=== PATIENT | female | born 1950 | race Caucasian/White ===

== ENCOUNTER 2022-04-22 12:11 | Emergency (ER) | payer MEDICARE ==
[~2022-04-22 12:11] MED LIST: ASCO500T10 PO; BALS60OI TP; CHOL-34 PO; DIPH25TA22 PO; DRON10CA5 PO; ENOX40DI9 SQ; FLUC100T12 PO; FURO10VI4 IV; HYDR0.5S2 IVP; HYDR1AMP2 IVP; INSLAN SQ; INSU100V3 SQ; LACT10SO9 PO; METO5VIA33 IV; MIDO10TA PO; NYSTPW TP; ONDA22I IM; PANT40TA54 PO; PIPE4.5F2 IV; QUET25TA PO; RIFA550T PO; SANTO TP; SERT50TA PO; TRAM50TA4 PO; ZINC220C6 PO; [UNRECOGNIZED DRUG - CODE] IV; [UNRECOGNIZED DRUG - CODE] IV
[2022-04-22 13:01] LABS: BASOPHILS % (AUTO) 0.3 % (0.0-5.0); EOSINOPHILS % (AUTO) 1.3 % (0.0-8.0); HEMATOCRIT 30.2 % (36-48); MEAN CORPUSCULAR HEMOGLOBIN 30.4 pg (27.0-33.0); MEAN CORPUSCULAR HGB CONC 32.8 g/dL (32.0-36.0); MEAN CORPUSCULAR VOLUME 92.6 fL (79-99); MONOCYTES % (AUTO) 7.8 % (3.0-13.0); PLATELET COUNT (AUTO) 453 K/uL (130-400); RED BLOOD CELL COUNT(AUTO) 3.26 MIL/uL (4.00-5.50); RED CELL DISTRIBUTION WIDTH 14.1 % (11.0-15.5); WHITE BLOOD COUNT (AUTO) 14.8 K/uL (4.8-10.8)
[2022-04-22 13:28] LABS: ALBUMIN 1.9 g/dL (3.5-5.0); CREATININE 0.9 mg/dL (0.5-1.5); POTASSIUM 3.9 mmol/L (3.5-5.1); TOTAL PROTEIN, SERUM 6.2 g/dL (6.0-8.3)
[2022-04-22 13:30] LABS: INR 1.03 (0.85-1.15); PROTHROMBIN TIME 11.2 SEC (9.6-11.6)
[2022-04-22] MEDS ORDERED: TRAMADOL HCL 50 MG TABLET PO ONE (13:30)
[2022-04-22] MEDS ORDERED: ACETAMINOPHEN 500 MG TABLET PO ONE (13:30)
[2022-04-22 13:31] LABS: PARTIAL THROMBOPLASTIN TIME 29.9 SEC (26.3-35.5)
[2022-04-22 13:48] LABS: BILIRUBIN,URINE NEGATIVE (NEGATIVE); COLOR,URINE YELLOW (YELLOW); GLUCOSE, URINE (UA) NEGATIVE (NEGATIVE); KETONES,URINE NEGATIVE (NEGATIVE); LEUKOCYTE ESTERASE ,URINE MODERATE Leu/uL (NEGATIVE); NITRATE,URINE NEGATIVE (NEGATIVE); OCCULT BLOOD,URINE TRACE-INTACT (NEGATIVE); PROTEIN,URINE 30 mg/dL (NEGATIVE); UROBILINOGEN,URINE 0.2 mg/dL (0.2-1.0)
[2022-04-22 13:59] LABS: APPEARANCE,URINE CLOUDY (CLEAR)
[2022-04-22] MEDS ORDERED: ZOSYN 3.375GM +NS 50ML IV STA (14:09)
[2022-04-22 14:19] VITALS: BP 123/68
[2022-04-22 14:22] LABS: BACTERIA,URINE Few /HPF (None Seen); YEAST,URINE BUDDING Many /HPF (None Seen)
[2022-04-22] MEDS ORDERED: CEPH500B PO (14:23)
== END 2022-04-22 16:56 | disposition short-term general hospital (02) ==
LOC: EDH 12:11
DX: N39.0 Urinary tract infection, site not specified (principal); E66.01 Morbid (severe) obesity due to excess calories; Z68.43 Body mass index [BMI] 50.0-59.9, adult; E11.9 Type 2 diabetes mellitus without complications; E78.00 Pure hypercholesterolemia, unspecified; F32.A Depression, unspecified; I11.0 Hypertensive heart disease with heart failure; I50.9 Heart failure, unspecified; Z88.8 Allergy status to other drugs, medicaments and biological substances; Z88.2 Allergy status to sulfonamides; Z88.6 Allergy status to analgesic agent; Z88.5 Allergy status to narcotic agent; Z79.899 Other long term (current) drug therapy; Z79.4 Long term (current) use of insulin
CPT/HCPCS: 99285; 96365; 71045; 82550; 84484; 80053; 85025; 85610; 85730; 87040 ×2; 87077; 87088; 87186; 83605; 81001; 36415; 51702; 93005; J2543

== ENCOUNTER 2022-06-01 10:29 | Emergency (ER) | payer MEDICARE ==
[~2022-06-01 10:29] MED LIST changes: +ACET325T51 PEG; -ASCO500T10 PO; +AUD IH; -BALS60OI TP; -CHOL-34 PO; -DIPH25TA22 PO; -DRON10CA5 PO; -ENOX40DI9 SQ; -FLUC100T12 PO; -FURO10VI4 IV; +HONE15GE TP; -HYDR0.5S2 IVP; -HYDR1AMP2 IVP; -INSU100V3 SQ; -LACT10SO9 PO; +MAGN400T56 PEG; -METO5VIA33 IV; -MIDO10TA PO; +MULT-1203 PEG; -NYSTPW TP; -ONDA22I IM; -PANT40TA54 PO; -PIPE4.5F2 IV; +PREG25CA18 PO; +PROM25TA7 PO; +PROT946L PEG; -QUET25TA PO; -RIFA550T PO; +RIVA10TA PEG; -SANTO TP; -SERT50TA PO; +TRAM100T40 PO; -TRAM50TA4 PO; +VIT C; +VIT500LI PEG; -ZINC220C6 PO; +ZINC220T4 PEG; -[UNRECOGNIZED DRUG - CODE] IV; -[UNRECOGNIZED DRUG - CODE] IV; +[UNRECOGNIZED DRUG - OTHER] MISC
[2022-06-01 10:36] VITALS: BP 140/87
== END 2022-06-01 15:56 ==
LOC: EDH 10:29
DX: T85.518A Breakdown (mechanical) of other gastrointestinal prosthetic devices, implants and grafts, initial encounter (principal); E11.9 Type 2 diabetes mellitus without complications; I11.0 Hypertensive heart disease with heart failure; I50.9 Heart failure, unspecified; E66.01 Morbid (severe) obesity due to excess calories; Z68.43 Body mass index [BMI] 50.0-59.9, adult; Z79.4 Long term (current) use of insulin; Z87.440 Personal history of urinary (tract) infections; Z88.2 Allergy status to sulfonamides; Z88.5 Allergy status to narcotic agent; Y83.8 Other surgical procedures as the cause of abnormal reaction of the patient, or of later complication, without mention of misadventure at the time of the procedure; Y92.89 Other specified places as the place of occurrence of the external cause
CPT/HCPCS: 45999

== ENCOUNTER 2022-06-15 04:29 | Emergency (ER) | payer MEDICARE ==
[2022-06-15 06:37] VITALS: BP 131/65
== END 2022-06-15 11:18 ==
LOC: EDH 04:29
DX: Z46.59 Encounter for fitting and adjustment of other gastrointestinal appliance and device (principal); E11.9 Type 2 diabetes mellitus without complications; I25.10 Atherosclerotic heart disease of native coronary artery without angina pectoris; Z79.4 Long term (current) use of insulin; Z87.440 Personal history of urinary (tract) infections; Z88.5 Allergy status to narcotic agent; Z88.2 Allergy status to sulfonamides; Z79.899 Other long term (current) drug therapy
CPT/HCPCS: 45999; 99281

== ENCOUNTER 2022-06-18 18:42 | Emergency (ER) | payer MEDICARE ==
[2022-06-18 22:29] LABS: BASOPHILS % (AUTO) 0.4 % (0.0-5.0); EOSINOPHILS % (AUTO) 2.9 % (0.0-8.0); HEMATOCRIT 36.1 % (36-48); LYMPHOCYTES % (AUTO) 16.7 % (21.0-51.0); MEAN CORPUSCULAR HEMOGLOBIN 27.6 pg (27.0-33.0); MEAN CORPUSCULAR HGB CONC 32.7 g/dL (32.0-36.0); MEAN CORPUSCULAR VOLUME 84.3 fL (79-99); MONOCYTES % (AUTO) 7.4 % (3.0-13.0); NEUTROPHILS % (AUTO) 72.1 % (40.0-77.0); PLATELET COUNT (AUTO) 378 K/uL (130-400); RED BLOOD CELL COUNT(AUTO) 4.28 MIL/uL (4.00-5.50); RED CELL DISTRIBUTION WIDTH 15.9 % (11.0-15.5); WHITE BLOOD COUNT (AUTO) 10.3 K/uL (4.8-10.8)
[2022-06-18 22:31] LABS: APPEARANCE,URINE CLOUDY (CLEAR); BILIRUBIN,URINE NEGATIVE (NEGATIVE); COLOR,URINE LIGHT-YELLOW (YELLOW); GLUCOSE, URINE (UA) NEGATIVE (NEGATIVE); KETONES,URINE NEGATIVE (NEGATIVE); LEUKOCYTE ESTERASE ,URINE 500 Leu/uL (NEGATIVE); NITRATE,URINE NEGATIVE (NEGATIVE); OCCULT BLOOD,URINE NEGATIVE (NEGATIVE); PROTEIN,URINE 30 mg/dL (NEGATIVE); UROBILINOGEN,URINE 0.2 mg/dL (0.2-1.0)
[2022-06-18 22:40] LABS: BACTERIA,URINE RARE /HPF (None Seen); CALCIUM OXALATE CRYSTALS,UR FEW /LPF (None Seen); MUCUS,URINE RARE LPF (None Seen); RBC,URINE 26-50 /HPF (0-1); SQUAMOUS EPITHELIAL CELL,UR RARE /HPF (0-2); TRANSITIONAL EPI CELLS,URINE RARE /HPF (None Seen); WBC,URINE TNTC /HPF (0-1); YEAST,URINE BUDDING FEW /HPF (None Seen)
[2022-06-18 22:49] LABS: CREATININE 1.1 mg/dL (0.5-1.5); POTASSIUM 3.5 mmol/L (3.5-5.1)
[2022-06-18 22:54] LABS: ALBUMIN 2.8 g/dL (3.5-5.0); TOTAL PROTEIN, SERUM 7.3 g/dL (6.0-8.3)
[2022-06-19] MEDS ORDERED: CEFTRIAXONE 1G VIAL IVP STA (02:55)
[2022-06-19] MEDS ORDERED: CEPH250S PO (03:01)
[2022-06-19 05:48] VITALS: BP 121/65
== END 2022-06-19 06:42 ==
LOC: EDH 18:42
DX: N39.0 Urinary tract infection, site not specified (principal); E66.01 Morbid (severe) obesity due to excess calories; E11.9 Type 2 diabetes mellitus without complications; Z68.43 Body mass index [BMI] 50.0-59.9, adult; Z79.4 Long term (current) use of insulin; Z87.440 Personal history of urinary (tract) infections; Z88.2 Allergy status to sulfonamides; Z88.5 Allergy status to narcotic agent; Z88.7 Allergy status to serum and vaccine
CPT/HCPCS: 99284; 80053; 85025; 87040 ×2; 87077 ×2; 87088; 87186 ×2; 83605; 81001; 36415; 96374; J0696

== ENCOUNTER 2022-06-20 04:13 | Emergency (ER) | payer MEDICARE ==
[~2022-06-20 04:13] MED LIST changes: +CEPH250S PO
[2022-06-20 04:42] VITALS: BP 143/82
== END 2022-06-20 09:54 ==
LOC: EDH 04:13
DX: K62.89 Other specified diseases of anus and rectum (principal); E11.9 Type 2 diabetes mellitus without complications; Z79.4 Long term (current) use of insulin; Z79.899 Other long term (current) drug therapy; Z88.2 Allergy status to sulfonamides; Z88.5 Allergy status to narcotic agent; Z88.8 Allergy status to other drugs, medicaments and biological substances

== ENCOUNTER 2022-07-25 18:04 | Emergency (ER) | payer MEDICARE ==
[~2022-07-25] VITALS: Ht 160 cm; Wt 87.5 kg
[2022-07-25 19:00] VITALS: BP 153/78
== END 2022-07-25 23:15 | disposition home or self-care (01) ==
LOC: EDH 18:04
DX: L89.899 Pressure ulcer of other site, unspecified stage (principal); Z46.59 Encounter for fitting and adjustment of other gastrointestinal appliance and device; I50.9 Heart failure, unspecified; I13.0 Hypertensive heart and chronic kidney disease with heart failure and stage 1 through stage 4 chronic kidney disease, or unspecified chronic kidney disease; E11.22 Type 2 diabetes mellitus with diabetic chronic kidney disease; N18.9 Chronic kidney disease, unspecified; Z79.4 Long term (current) use of insulin; Z88.2 Allergy status to sulfonamides; Z88.5 Allergy status to narcotic agent; Z95.1 Presence of aortocoronary bypass graft; Y73.8 Miscellaneous gastroenterology and urology devices associated with adverse incidents, not elsewhere classified; Y92.89 Other specified places as the place of occurrence of the external cause
CPT/HCPCS: 87077; 87088; 87186

== ENCOUNTER 2022-07-28 11:35 | Emergency (ER) | payer MEDICARE ==
[2022-07-28 15:28] VITALS: BP 146/78
== END 2022-07-28 15:35 | disposition home or self-care (01) ==
LOC: EDH 11:35
DX: K62.89 Other specified diseases of anus and rectum (principal); E11.22 Type 2 diabetes mellitus with diabetic chronic kidney disease; N18.9 Chronic kidney disease, unspecified; Z88.2 Allergy status to sulfonamides; Z88.5 Allergy status to narcotic agent; Z88.8 Allergy status to other drugs, medicaments and biological substances; Z79.899 Other long term (current) drug therapy; Z98.890 Other specified postprocedural states

== ENCOUNTER 2022-08-04 12:40 | Emergency (ER) | payer MEDICARE ==
[~2022-08-04] VITALS: Ht 160 cm; Wt 86.2 kg
[2022-08-04 12:44] VITALS: BP 134/65
== END 2022-08-04 16:21 | disposition home or self-care (01) ==
LOC: EDH 12:40
DX: K62.89 Other specified diseases of anus and rectum (principal); E11.9 Type 2 diabetes mellitus without complications; I10 Essential (primary) hypertension; Z88.2 Allergy status to sulfonamides; Z88.5 Allergy status to narcotic agent; Z88.8 Allergy status to other drugs, medicaments and biological substances; Z90.49 Acquired absence of other specified parts of digestive tract; Z95.1 Presence of aortocoronary bypass graft; Z98.890 Other specified postprocedural states; Z79.899 Other long term (current) drug therapy

== ENCOUNTER 2022-08-10 21:41 | Emergency (ER) | payer MEDICARE ==
[~2022-08-10] VITALS: Ht 165.1 cm; Wt 81.6 kg
[2022-08-10 22:09] VITALS: BP 159/68
== END 2022-08-11 00:04 | disposition home or self-care (01) ==
LOC: EDH 21:41
DX: T85.898A Other specified complication of other internal prosthetic devices, implants and grafts, initial encounter (principal); I25.10 Atherosclerotic heart disease of native coronary artery without angina pectoris; E11.9 Type 2 diabetes mellitus without complications; I10 Essential (primary) hypertension; Z79.4 Long term (current) use of insulin; Z88.2 Allergy status to sulfonamides; Z88.5 Allergy status to narcotic agent; Z90.49 Acquired absence of other specified parts of digestive tract; Z95.1 Presence of aortocoronary bypass graft; Y83.8 Other surgical procedures as the cause of abnormal reaction of the patient, or of later complication, without mention of misadventure at the time of the procedure; Y92.89 Other specified places as the place of occurrence of the external cause

== ENCOUNTER 2022-08-13 13:07 | Emergency (ER) | payer MEDICARE ==
[~2022-08-13] VITALS: Ht 160 cm; Wt 83.9 kg
[2022-08-13 15:48] VITALS: BP 135/74
== END 2022-08-13 15:49 | disposition home or self-care (01) ==
LOC: EDH 13:07
DX: T85.898A Other specified complication of other internal prosthetic devices, implants and grafts, initial encounter (principal); E11.9 Type 2 diabetes mellitus without complications; I10 Essential (primary) hypertension; Z79.4 Long term (current) use of insulin; Z88.2 Allergy status to sulfonamides; Z88.5 Allergy status to narcotic agent; Z90.49 Acquired absence of other specified parts of digestive tract; Z95.1 Presence of aortocoronary bypass graft; Y83.8 Other surgical procedures as the cause of abnormal reaction of the patient, or of later complication, without mention of misadventure at the time of the procedure; Y92.89 Other specified places as the place of occurrence of the external cause